=== PATIENT | female | born 1995 | race Caucasian/White ===

== ENCOUNTER 2024-11-19 01:30 | Inpatient (IN) | payer BC ==
[2024-11-19] MEDS ORDERED: miSOPROStoL 200 MCG TAB PO PRN (01:52)
[2024-11-19] MEDS ORDERED: CARBOPROST TROMETHAMINE 250 MCG/ML 1 ML AMP IM PRN (01:52)
[2024-11-19] MEDS ORDERED: METHYLERGONOVINE 0.2 MG/ML 1 ML AMP IM PRN (01:52)
[2024-11-19] MEDS ORDERED: TERBUTALINE 1 MG/ML VIAL SQ PRN (01:52)
[2024-11-19] MEDS ORDERED: miSOPROStoL 200 MCG TAB RECTAL PRN (01:52)
[2024-11-19] MEDS ORDERED: OXYTOCIN 10 UNIT/ML 1 ML VIAL IM PRN (01:52)
[2024-11-19] MEDS ORDERED: TRANEXAMIC 1,000 MG/100ML-NACL 1,000 MG in EMPTY BAG 1 BAG IV PRN (01:52)
[2024-11-19] MEDS: LACTATED RINGERS 1,000 ML IV SCH (02:11)
[2024-11-19 02:39] LABS: Basophils % (A) 0 %; Eosinophils # (A) 0.1 k/uL (0-0.7); Eosinophils % (A) 1 %; HCT 33.7 % (34.0-46.0); HGB 11.6 gm/dL (11.4-16.0); Lymphocytes # (A) 1.7 k/uL (1.0-4.8); Lymphocytes % (A) 20 %; MCH 32.3 pg (25.0-35.0); MCHC 34.5 g/dL (31.0-37.0); MCV 93.6 fL (80.0-100.0); Mean Platelet Volume 8.4; Monocytes # (A) 0.6 k/uL (0-1.0); Monocytes % (A) 7 %; Neutrophils # (A) 5.8 k/uL (1.3-7.7); Neutrophils % (A) 70 %; Platelet Count 155 k/uL (150-450); RDW 12.5 % (11.5-15.5); WBC 8.3 k/uL (3.8-10.6)
[2024-11-19] MEDS: OXYTOCIN 30 UNITS/500 ML NS 30 UNIT in SALINE 1 500ML.BAG IV SCH (02:45)
[2024-11-19] MEDS ORDERED: SODIUM CHLORIDE 0.9% 250 ML BAG ONE (05:23)
[2024-11-19] MEDS ORDERED: ROPIVACAINE 5 MG/ML 30 ML VIAL ONE (05:23)
[2024-11-19] MEDS ORDERED: fentaNYL (PF) 50 MCG/ML 5 ML AMP ONE (05:23)
--- NOTE | 2024-11-19 08:34 | P.HPOB ---
History of Present Illness H&P Date: 11/19/24 Chief Complaint: IUP at 40-3/7 weeks, labor This is a 29-year-old 1 para 0 that presented to labor and delivery early this morning with complaints of contractions. Patient states contractions began and she presented to labor and delivery 1 AM. Patient was noted to be 1 cm and uncomfortable. Patient was admitted, she did make some cervical change and requested epidural. Epidural was placed without difficulty by the anesthesia department. Patient has been receiving routine care with myself. Patient notes good movement. And is comfortable this morning with epidural. On blood work this patient is a blood type of A+, rubella status immune, hepatitis B surface engine negative, HIV negative, RPR is nonreactive, grew beta strep culture is negative. Review of Systems Constitutional: Denies chills, Denies fatigue, Denies fever Ears, nose, mouth and throat: Denies headache Cardiovascular: Reports leg edema Respiratory: Denies dyspnea Gastrointestinal: Denies nausea, Denies vomiting Genitourinary: Reports Past Medical History Past Medical History: No Reported History History of Any Multi-Drug Resistant Organisms: None Reported Past Surgical History: No Surgical Hx Reported Past Anesthesia/Blood Transfusion Reactions: No Reported Reaction Past Psychological History: No Psychological Hx Reported Smoking Status: Never smoker Past Drug Use History: None Reported Medications and Allergies Home Medications Medication Instructions Recorded Confirmed Type Aspirin 1 tab PO DAILY 11/19/24 11/19/24 History Vit No.179/Iron/Folic 1 tab PO DAILY 11/19/24 11/19/24 History [ Tablet] Allergies Allergy/AdvReac Type Severity Reaction Status Date / Time No Known Allergies Allergy Verified 11/19/24 01:52 Exam Osteopathic Statement: *. No significant issues noted on an osteopathic structural exam other than those noted in the History and Physical/Consult. Vital Signs Temp Pulse Resp BP Pulse Ox 11/19/24 01:49 96.6 F L 67 16 144/89 98 Intake and Output 11/18/24 11/19/24 11/19/24 22:59 06:59 14:59 Other: # Voids 1 Weight 86.183 kg Targeted physical exam is performed this date General Is well-nourished well- developed female in no acute distress, breathing is noted to be nonlabored, heart has a regular and rhythm, abdomen is gravid, on cervical exam she is 4/80/-2 station vertex presentation. Patient appears to have ruptured spontaneously at some point through the night. heart tones are noted to be category 1 contractions are noted to be every 3 minutes. Results Result Diagrams: 11/19/24 02:08 Abnormal Lab Results - Last 24 Hours (Table) 11/19/24 Range/Units 02:08 RBC 3.60 L (3.80-5.40) m/uL Hct 33.7 L (34.0-46.0) % Assessment and Plan (1) Post-dates Current Visit: Yes Status: Acute Code(s): O48.0 - POST-TERM SNOMED Code(s): 42278476 (2) Active labor Current Visit: Yes Status: Acute Code(s): LUR4023 - SNOMED Code(s): 118 697671 Plan: 29-year-old G1, P0 at 40-3/7 weeks that presents to labor and delivery in active labor. Patient did receive an epidural through the night as she was uncomf ortable. I do suspect she had spontaneous rupture of membranes at some point during the night in addition. Continue with Pitocin augmentation of labor. Continuous monitoring Clear liquids as tolerated
[2024-11-19] MEDS ORDERED: diphenhydrAMINE 50 MG/ML 1 ML VIAL IVP PRN ×2 (15:55)
[2024-11-19] MEDS ORDERED: LANOLIN CREAM 1 GM TUBE TOPICAL PRN (15:55)
[2024-11-19] MEDS ORDERED: diphenhydrAMINE 50 MG CAP PO PRN (15:55)
[2024-11-19] MEDS ORDERED: HYDROCORTISONE 2.5% RECTAL CREAM 30 GM TUBE RECTAL PRN (15:55)
[2024-11-19] MEDS ORDERED: ZOLPIDEM 5 MG TAB PO PRN (15:55)
[2024-11-19] MEDS ORDERED: SIMETHICONE 80 MG CHEWABLE PO PRN (15:55)
[2024-11-19] MEDS ORDERED: diphenhydrAMINE 25 MG CAP PO PRN (15:55)
--- NOTE | 2024-11-19 16:00 | P.PROBDLV ---
Vaginal Delivery Note - . 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 Patient was admitted and did request epidural. Patient was begun on Pitocin for augmentation of labor. Patient made good progress through labor. Patient progressed to complete and began pushing. Through category 2 heart tones patient had a normal spontaneous vaginal delivery of a viable male infant at 1521, weight of 8 pounds 8 ounces Apgars of 8 and 9 at 1 and 5 minutes respectively. Umbilical cord was doubly clamped and cut, infant was handed to maternal abdomen. Spontaneous cry was noted at . Stent was delivered spontaneously intact with three-vessel cord being noted. On inspection the patient's vaginal vault a midline, second-degree vaginal laceration was noted along with a left sulcal laceration. The areas were injected with lidocaine and repaired in the usual fashion with 3-0 Rapide. After closure hemostasis was noted. Uterus was noted be firm and below the umbilicus. After delivery of the placenta, the bladder was drained for approximately 100 cc of clear yellow urine. Estimated blood loss 200 cc. Patient and infant tolerated delivery well and are resting comfortably.
[2024-11-19] MEDS: IBUPROFEN 800 MG TAB PO SCH (16:26)
[2024-11-19] MEDS: LIDOCAINE 0.5% (PF) 5 MG/ML (50 ML SDV) SQ PRN (16:26)
[2024-11-19] MEDS: BENZOCAINE/MENTHOL SPRAY 1 GM/SPRAY AEROSOL TOPICAL PRN (16:29)
[2024-11-19] MEDS: ROPIVACAINE 225 MG, fentaNYL (PF). 450 MCG in SODIUM CHLORIDE 0.9% 171 ML EPIDURAL ONE (17:52)
[2024-11-19 18:18] VITALS: RESP 16
[2024-11-19] MEDS: ACETAMINOPHEN TAB 500 MG TAB PO SCH (19:59)
[2024-11-19] MEDS: SENNOSIDES-DOCUSATE SODIUM 1 EACH TAB PO SCH (19:59)
[2024-11-20 04:37] VITALS: TEMP 98.2
[2024-11-20 07:03] LABS: Basophils # (A) 0.1 k/uL (0-0.2); Basophils % (A) 1 %; Eosinophils % (A) 0 %; HCT 27.8 % (34.0-46.0); Lymphocytes # (A) 1.6 k/uL (1.0-4.8); Lymphocytes % (A) 12 %; MCHC 34.5 g/dL (31.0-37.0); MCV 95.5 fL (80.0-100.0); Mean Platelet Volume 9.1; Monocytes # (A) 0.5 k/uL (0-1.0); Monocytes % (A) 4 %; Neutrophils # (A) 11.2 k/uL (1.3-7.7); Neutrophils % (A) 82 %; Platelet Count 144 k/uL (150-450); RBC 2.91 m/uL (3.80-5.40); RDW 12.7 % (11.5-15.5); WBC 13.6 k/uL (3.8-10.6)
[2024-11-20 07:53] LABS: HGB 9.6 gm/dL (11.4-16.0)
[2024-11-20 08:12] VITALS: BP 129/61; PULSE 82
--- NOTE | 2024-11-20 12:17 | P.DS ---
Providers Date of admission: 11/19/24 01:30 Expected date of discharge: 11/20/24 Attending physician: Bárbara Castaneda Primary care physician: Stated None - Discharge Diagnosis(es) (1) Post-dates Current Visit: Yes Status: Acute (2) Active labor Current Visit: Yes Status: Acute (3) Status post vaginal delivery Current Visit: Yes Status: Acute Hospital Course: 29-year-old G1 now P1 status post normal spontaneous vaginal delivery at 40-3/7 weeks. Patient had been receiving routine care which had been essentially uncomplicated. 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 Patient did request epidural. Epidural was placed without difficulty by the anesthesia department. Contractions were noted to space therefore Pitocin was added for augmentation of labor. Patient made good progress in labor. Patient progressed to labor and began pushing and had a normal spontaneous vaginal delivery of a viable male at 1521, weight of 8 pounds 8 ounces, a secondary midline vaginal laceration was noted after delivery along with a left sulcal laceration. These were repaired in the usual fashion with 3-0 Rapide. Patient's course has been complicated by acute blood loss anemia, hemoglobin of 9.6 this morning. Patient is counseled on iron once daily with orange juice. Patient is feeling well and is asymptomatic from this anemia. Patient does desire discharge home at 24 hours. Patient Condition at Discharge: Good Plan - Discharge Summary New Discharge Prescriptions: No Action Aspirin 1 tab PO DAILY Vit No.179/Iron/Folic [ Tablet] 1 tab PO DAILY Discharge Medication List Aspirin 1 tab PO DAILY 11/19/24 [History] Vit No.179/Iron/Folic [ Tablet] 1 tab PO DAILY 11/19/24 [History] Follow up Appointment(s)/Referral(s): Bárbara Castaneda DO [Doctor of Osteopathic Medicine] - 01/02/25 1:00 pm Patient Instructions/Handouts: Vaginal Delivery (DC), Vaginal Delivery (GEN) Activity/Diet/Wound Care/Special Instructions: should she have any concerns prior this visit she is urged to call the office. No tub baths or intercourse until 6 weeks . [id number]-[id number] ibuprofen as needed for pain. Patient is to get iovz-apz-sgnbhyu iron 1 tablet daily with orange juice. Will plan to repeat CBC at 6-week check. Patient is to call the office for routine visit at 6 weeks, if she has any current concerns she is urged to call the office and be seen prior to this appointment Discharge Disposition: HOME SELF-CARE
== END 2024-11-20 15:55 | disposition home or self-care (01) | DRG 806 ==
LOC: 4FBP 01:30
PROVIDERS: ADMIT Obstetrics & Gynecology; ATTEND Obstetrics & Gynecology Obstetrics
PROC: 10E0XZZ Delivery of Products of Conception, External Approach (ICD-10-PCS; principal; 2024-11-19)
PROC: 0KQM0ZZ Repair Perineum Muscle, Open Approach (ICD-10-PCS; principal; 2024-11-19)
DX: O48.0 Post-term pregnancy (principal); D62 Acute posthemorrhagic anemia; Z37.0 Single live birth; O70.1 Second degree perineal laceration during delivery; O90.81 Anemia of the puerperium; Z3A.40 40 weeks gestation of pregnancy; Z79.82 Long term (current) use of aspirin; Z79.899 Other long term (current) drug therapy
CPT/HCPCS: 85025; 86850; 86900; 86901